=== PATIENT | female | born 1970 | race Caucasian/White ===

== ENCOUNTER 2017-09-23 12:53 | Emergency (ER) | payer OTHER | END 2017-09-23 15:30 | disposition home or self-care (01) | LOC: FTE 12:53 | DX: S09.90XA Unspecified injury of head, initial encounter (principal); E03.9 Hypothyroidism, unspecified; R51 Headache; W20.8XXA Other cause of strike by thrown, projected or falling object, initial encounter; Y92.9 Unspecified place or not applicable | CPT/HCPCS: 70450; 99284-25 ==